=== PATIENT | male | born 1960 | race Caucasian/White ===

== ENCOUNTER → 2017-06-28 | Day surgery (SDC) | payer OTHER ==
[~2017-06-28] VITALS: Ht 177.8 cm; Wt 84.8 kg
[~2017-06-28] MED LIST: 0.9% Sodium Chloride 1,000 ML IV SCH; Sodium Chloride LOK Flush 10 mL Syringe IV PRN; fentaNYL-PF 50 mCg/mL 2 mL Inj IVPUSH PRN
[2017-06-28 07:32] VITALS: BP 150/94; PULSE 66; RESP 14; O2SAT 99
[2017-06-28 08:38] VITALS: BP 129/75; PULSE 56; RESP 15; O2SAT 98
[2017-06-28 08:48] VITALS: BP 118/69; PULSE 59; O2SAT 100
[2017-06-28 08:58] VITALS: BP 119/73; PULSE 57; RESP 15; O2SAT 95
--- NOTE | 2017-06-28 09:01 | ENDO ---
[address] [address] ENDOSCOPY PROCEDURE PATIENT: DOMINICK GONZALEZ : 1960 MR#: [id number] ADMIT: 06/28/2017 JOB ID: [id number] TYPE OF PROCEDURE: Colonoscopy. INDICATION: Screening. Patient's ASA classification is 1. Mallampati score is 2. MEDICATIONS: 1. Versed 5 mg. 2. Fentanyl 100 mcg. INSTRUMENT USED: [id number] PREPARATION QUALITY: Fair. PROCEDURE DETAILS: After informed consent was obtained, the patient was brought into the GI suite, where he was placed on oxygen via nasal cannula and monitored with continuous pulse oximeter, telemetry, and blood pressure monitoring. A time-out was performed. Then, he was placed in a left lateral decubitus position and medications were administered for sedation. Digital rectal exam was performed unremarkable. The colonoscope was then inserted into the rectum and advanced under direct visualization to the cecum, which identified by the presence of the ileocecal valve and appendiceal orifice. Once the cecum was reached, the colonoscope was withdrawn back into the rectum as mucosa and lumen were examined. In the rectum, retroflexion was performed. Following retroflexion, remaining air in the rectum was suctioned and the procedure was completed. FINDINGS: 1. In the proximal ascending colon there was an approximately 6 mm sessile polyp that was removed with a hot snare. 2. In the proximal transverse colon there was an approximately 3-4 mm sessile polyp that was removed with a cold snare. IMPRESSION: 1. Ascending colon polyp. 2. Transverse colon polyp. RECOMMENDATIONS: 1. Avoid NSAIDs and anticoagulants for 72 hours. 2. Repeat colonoscopy in five years. COMPLICATIONS: None. ESTIMATED BLOOD LOSS: Less than 5 mL.
--- NOTE | 2017-06-29 16:04 | PATH ---
SURGICAL PATHOLOGY Attending Physician:Terrence Reddy CASE STATUS: Signed Out PATIENT NAME: DOMINICK GONZALEZ PID: [id number] : 1960 DATE COLLECTED:06/28/2017 21:05 SPECIMEN: 1: Colon, Polyp 2: Colon, Polyp CLINICAL HISTORY: 1). TRANSVERSE POLYP X 1 2). ASCENDING POLYP X 1 FINAL DIAGNOSIS: 1. Transverse Colon Polyp, Polypectomy: Hyperplastic polyp. 2. Ascending Colon Polyp, Polypectomy: Sessile serrated adenoma. ICD10: D12.2 GROSS DESCRIPTION: The specimen is received in two formalin filled containers labeled with the patient's name. 1). The specimen is labeled "trans" and consists of a 0.2 x 0.2 x 0.2 CM portion of tissue which is entirely submitted in cassette 1A. 2). The specimen is labeled "ascen" and consists of a 0.5 x 0.4 x 0.4 CM portion of tissue which is entirely submitted in cassette 2A. 06/28/2017DC ICD-9 CODES: CPT CODES: 1: 41624 2: 28630 Electronically Signed Out Lalo Little MD, Ph.D. [facility] [address], [place] [address] Technical component performed at [facility], [address], [place], [address]
== END | disposition home or self-care (01) ==
LOC: END 00:07
PROVIDERS: ATTEND Internal Medicine Gastroenterology
DX: Z12.11 Encounter for screening for malignant neoplasm of colon (principal); D12.2 Benign neoplasm of ascending colon; K63.5 Polyp of colon
CPT/HCPCS: 45385; 99153; G0500; J2250; J3010; J7030